=== PATIENT | female | born 1995 | race Hispanic/Latino ===

== ENCOUNTER 2022-06-07 15:33 | Inpatient (IN) | payer OTHER, SELFPAY ==
[~2022-06-07] VITALS: Ht 165.1 cm; Wt 100.9 kg
[2022-06-07 17:51] LABS: BASOPHILS % (AUTO) 1.2 % (0.0-5.0); EOSINOPHILS % (AUTO) 11.7 % (0.0-8.0); HEMATOCRIT 36.7 % (36-48); LYMPHOCYTES % (AUTO) 29.7 % (21.0-51.0); MEAN CORPUSCULAR HGB CONC 36.8 g/dL (32.0-36.0); MEAN CORPUSCULAR VOLUME 81.6 fL (79-99); MONOCYTES % (AUTO) 12.5 % (3.0-13.0); NEUTROPHILS % (AUTO) 44.7 % (40.0-77.0); PLATELET COUNT (AUTO) 256 K/uL (130-400); RED CELL DISTRIBUTION WIDTH 11.8 % (11.0-15.5); WHITE BLOOD COUNT (AUTO) 5.9 K/uL (4.8-10.8)
[2022-06-07 18:14] LABS: CREATININE 0.6 mg/dL (0.5-1.5); POTASSIUM 3.5 mmol/L (3.5-5.1); TOTAL PROTEIN, SERUM 7.8 g/dL (6.0-8.3)
[2022-06-07 18:29] LABS: APPEARANCE,URINE CLEAR (CLEAR); BILIRUBIN,URINE NEGATIVE (NEGATIVE); COLOR,URINE YELLOW (YELLOW); GLUCOSE, URINE (UA) NEGATIVE (NEGATIVE); KETONES,URINE 100 mg/dL (NEGATIVE); LEUKOCYTE ESTERASE ,URINE NEGATIVE Leu/uL (NEGATIVE); NITRATE,URINE NEGATIVE (NEGATIVE); PROTEIN,URINE 10 mg/dL (NEGATIVE); UROBILINOGEN,URINE 0.2 mg/dL (0.2-1.0)
[2022-06-07] MEDS ORDERED: 0.9%NACL 1000ML 1,000 ML IV ONE (18:30)
[2022-06-07 18:33] LABS: MUCUS,URINE FEW LPF (None Seen); SQUAMOUS EPITHELIAL CELL,UR RARE /HPF (0-2)
[2022-06-07 18:38] LABS: HCG,QUALITATIVE URINE NEGATIVE (NEGATIVE)
[2022-06-07] MEDS ORDERED: LACTULOSE 20 GM/30 ML UDCUP PO PRN (19:30)
[2022-06-07] MEDS ORDERED: 0.9%NACL 1000ML 1,000 ML IV SCH (19:30)
[2022-06-07] MEDS ORDERED: ONDANSETRON 4MG INJ IV PRN (19:30)
[2022-06-07] MEDS: CEFTRIAXONE 1G VIAL IVP SCH (20:10)
[2022-06-07] MEDS: FAMOTIDINE 20MG TAB PO SCH (20:10)
[2022-06-07 20:23] LABS: THYROID STIMULATING HORMONE 0.92 uIU/mL (0.36-3.74); URIC ACID 3.9 mg/dL (2.6-7.2)
[2022-06-07 22:41] LABS: CREATININE 0.5 mg/dL (0.5-1.5); POTASSIUM 3.6 mmol/L (3.5-5.1)
[2022-06-08] VITALS (8 sets, daily range): BP systolic 106–138; BP diastolic 64–81
[2022-06-08 02:09] LABS: CREATININE 0.6 mg/dL (0.5-1.5); POTASSIUM 3.5 mmol/L (3.5-5.1)
[2022-06-08 06:49] LABS: CREATININE 0.6 mg/dL (0.5-1.5); POTASSIUM 4.1 mmol/L (3.5-5.1)
[2022-06-08] MEDS ORDERED: GADOTERATE MEGLUMINE 10 MMOL/20 ML VIAL IV ONE (08:00)
[2022-06-08] MEDS: FAMOTIDINE 20MG TAB PO SCH ×2 (09:09→21:10)
[2022-06-08 10:20] LABS: CREATININE 0.7 mg/dL (0.5-1.5); POTASSIUM 3.5 mmol/L (3.5-5.1)
[2022-06-08 14:13] LABS: CREATININE 0.7 mg/dL (0.5-1.5); POTASSIUM 3.6 mmol/L (3.5-5.1)
[2022-06-08 18:16] LABS: CREATININE 0.7 mg/dL (0.5-1.5); POTASSIUM 3.7 mmol/L (3.5-5.1)
[2022-06-08] MEDS: CEFTRIAXONE 1G VIAL IVP SCH (21:10)
[2022-06-09 03:15] VITALS: BP 120/66
[2022-06-09] MEDS: FAMOTIDINE 20MG TAB PO SCH ×2 (07:52→20:52)
[2022-06-09 08:00] VITALS: BP 111/74
[2022-06-09 12:00] VITALS: BP 125/70
[2022-06-09] MEDS ORDERED: PHARMACY COMMUNICATION MISC SCH (15:30)
[2022-06-09] MEDS ORDERED: HYDROCORTISONE 20 MG TABLET PO SCH (15:30)
[2022-06-09 16:00] VITALS: BP 122/73
[2022-06-09] MEDS ORDERED: COSYNTROPIN 0.25 MG VIAL IVP SCH (17:00)
[2022-06-09] MEDS: BROMOCRIPTINE MESYLATE 2.5 MG TABLET PO SCH (18:38)
[2022-06-09 20:02] VITALS: BP 116/78
[2022-06-09] MEDS: HYDROCORTISONE 20 MG TABLET PO SCH (20:52)
[2022-06-09] MEDS: CEFTRIAXONE 1G VIAL IVP SCH (20:52)
[2022-06-09 23:14] VITALS: BP 100/57
[2022-06-10 03:28] VITALS: BP 103/53
[2022-06-10 07:10] VITALS: BP 93/54
[2022-06-10 07:52] LABS: MEAN CORPUSCULAR HGB CONC 35.9 g/dL (32.0-36.0); MEAN CORPUSCULAR VOLUME 83.5 fL (79-99); RED BLOOD CELL COUNT(AUTO) 4.67 MIL/uL (4.00-5.50); RED CELL DISTRIBUTION WIDTH 12.2 % (11.0-15.5); WHITE BLOOD COUNT (AUTO) 5.6 K/uL (4.8-10.8)
[2022-06-10 08:00] LABS: CREATININE 0.6 mg/dL (0.5-1.5); POTASSIUM 4.2 mmol/L (3.5-5.1)
[2022-06-10 08:04] LABS: ALBUMIN 3.9 g/dL (3.5-5.0); TOTAL PROTEIN, SERUM 7.7 g/dL (6.0-8.3)
[2022-06-10] MEDS: HYDROCORTISONE 20 MG TABLET PO SCH ×2 (08:32→22:03)
[2022-06-10] MEDS: FAMOTIDINE 20MG TAB PO SCH ×2 (08:32→22:03)
[2022-06-10] MEDS: BROMOCRIPTINE MESYLATE 2.5 MG TABLET PO SCH (10:07)
[2022-06-10 12:18] VITALS: BP 105/65
[2022-06-10 15:31] VITALS: BP 103/64
[2022-06-10 20:21] VITALS: BP 105/67
[2022-06-10] MEDS: CEFTRIAXONE 1G VIAL IVP SCH (22:03)
[2022-06-10 22:50] VITALS: BP_SYST 104; BP_SYST 92; BP_DIAS 64; BP_DIAS 72
[2022-06-11 03:10] VITALS: BP 92/64
[2022-06-11] MEDS ORDERED: LEVOTHYROXINE 50 MCG TABLET PO SCH (06:30)
[2022-06-11 07:00] VITALS: BP 122/67
[2022-06-11 09:02] LABS: MEAN CORPUSCULAR HEMOGLOBIN 29.9 pg (27.0-33.0); MEAN CORPUSCULAR HGB CONC 34.9 g/dL (32.0-36.0); MEAN CORPUSCULAR VOLUME 85.7 fL (79-99); RED BLOOD CELL COUNT(AUTO) 4.55 MIL/uL (4.00-5.50); RED CELL DISTRIBUTION WIDTH 12.5 % (11.0-15.5)
[2022-06-11 09:07] LABS: CREATININE 0.7 mg/dL (0.5-1.5); POTASSIUM 4.2 mmol/L (3.5-5.1)
[2022-06-11] MEDS: ACETAMINOPHEN 325 MG TAB PO PRN (09:30)
[2022-06-11] MEDS: FAMOTIDINE 20MG TAB PO SCH ×2 (09:30→19:57)
[2022-06-11] MEDS: HYDROCORTISONE 20 MG TABLET PO SCH ×2 (09:30→19:58)
[2022-06-11] MEDS: BROMOCRIPTINE MESYLATE 2.5 MG TABLET PO SCH (09:31)
[2022-06-11 11:05] VITALS: BP 120/75
[2022-06-11 15:02] VITALS: BP 105/70
[2022-06-11] MEDS: CEFTRIAXONE 1G VIAL IVP SCH (19:57)
[2022-06-11 20:50] VITALS: BP 111/78
[2022-06-12 00:20] VITALS: BP 109/58
[2022-06-12 04:09] LABS: BASOPHILS % (AUTO) 0.6 % (0.0-5.0); EOSINOPHILS % (AUTO) 7.4 % (0.0-8.0); LYMPHOCYTES % (AUTO) 43.3 % (21.0-51.0); MEAN CORPUSCULAR HEMOGLOBIN 30.1 pg (27.0-33.0); MONOCYTES % (AUTO) 8.4 % (3.0-13.0); PLATELET COUNT (AUTO) 311 K/uL (130-400); RED BLOOD CELL COUNT(AUTO) 4.42 MIL/uL (4.00-5.50); RED CELL DISTRIBUTION WIDTH 12.4 % (11.0-15.5); WHITE BLOOD COUNT (AUTO) 7.9 K/uL (4.8-10.8)
[2022-06-12 04:15] VITALS: BP 99/55
[2022-06-12 04:30] LABS: CREATININE 0.7 mg/dL (0.5-1.5); MAGNESIUM 2.4 mg/dL (1.80-2.40); PHOSPHORUS 5.7 mg/dL (2.5-4.9); POTASSIUM 4.3 mmol/L (3.5-5.1)
[2022-06-12] MEDS ORDERED: LEVOTHYROXINE 50 MCG TABLET ONE (04:57)
[2022-06-12] MEDS: LEVOTHYROXINE 50 MCG TABLET PO SCH (04:58)
[2022-06-12 07:43] VITALS: BP 109/67
[2022-06-12] MEDS: FAMOTIDINE 20MG TAB PO SCH ×2 (08:21→19:29)
[2022-06-12] MEDS: HYDROCORTISONE 20 MG TABLET PO SCH ×2 (08:21→19:29)
[2022-06-12] MEDS: BROMOCRIPTINE MESYLATE 2.5 MG TABLET PO SCH (08:21)
[2022-06-12 11:19] VITALS: BP 103/72
[2022-06-12] MEDS: ACETAMINOPHEN 325 MG TAB PO PRN (12:35)
[2022-06-12 15:44] VITALS: BP 114/71
[2022-06-12] MEDS: CEFTRIAXONE 1G VIAL IVP SCH (19:29)
[2022-06-12 20:51] VITALS: BP 125/86
[2022-06-13] VITALS (7 sets, daily range): BP systolic 98–115; BP diastolic 60–77
[2022-06-13 05:53] LABS: BASOPHILS % (AUTO) 0.7 % (0.0-5.0); EOSINOPHILS % (AUTO) 6.9 % (0.0-8.0); HEMATOCRIT 39.1 % (36-48); LYMPHOCYTES % (AUTO) 45.3 % (21.0-51.0); MEAN CORPUSCULAR HGB CONC 34.8 g/dL (32.0-36.0); MEAN CORPUSCULAR VOLUME 86.3 fL (79-99); MONOCYTES % (AUTO) 7.7 % (3.0-13.0); NEUTROPHILS % (AUTO) 39.3 % (40.0-77.0); PLATELET COUNT (AUTO) 318 K/uL (130-400); RED BLOOD CELL COUNT(AUTO) 4.53 MIL/uL (4.00-5.50); RED CELL DISTRIBUTION WIDTH 12.4 % (11.0-15.5); WHITE BLOOD COUNT (AUTO) 7.7 K/uL (4.8-10.8)
[2022-06-13 06:02] LABS: CREATININE 0.8 mg/dL (0.5-1.5); POTASSIUM 4.2 mmol/L (3.5-5.1)
[2022-06-13] MEDS: LEVOTHYROXINE 50 MCG TABLET PO SCH (06:07)
[2022-06-13] MEDS: HYDROCORTISONE 20 MG TABLET PO SCH ×2 (09:18→20:27)
[2022-06-13] MEDS: FAMOTIDINE 20MG TAB PO SCH ×2 (09:18→20:27)
[2022-06-13] MEDS: ACETAMINOPHEN 325 MG TAB PO PRN (09:18)
[2022-06-13] MEDS: BROMOCRIPTINE MESYLATE 2.5 MG TABLET PO SCH (09:18)
[2022-06-13 09:33] LABS: INR 1.01 (0.85-1.15)
[2022-06-13] MEDS: CEFTRIAXONE 1G VIAL IVP SCH (20:27)
[2022-06-14 03:36] VITALS: BP 102/60
[2022-06-14 04:39] LABS: BASOPHILS % (AUTO) 0.6 % (0.0-5.0); EOSINOPHILS % (AUTO) 4.9 % (0.0-8.0); HEMATOCRIT 37.4 % (36-48); LYMPHOCYTES % (AUTO) 38.5 % (21.0-51.0); MEAN CORPUSCULAR HEMOGLOBIN 29.9 pg (27.0-33.0); MEAN CORPUSCULAR HGB CONC 34.8 g/dL (32.0-36.0); MONOCYTES % (AUTO) 6.2 % (3.0-13.0); NEUTROPHILS % (AUTO) 49.4 % (40.0-77.0); PLATELET COUNT (AUTO) 319 K/uL (130-400); RED BLOOD CELL COUNT(AUTO) 4.35 MIL/uL (4.00-5.50); RED CELL DISTRIBUTION WIDTH 12.2 % (11.0-15.5); WHITE BLOOD COUNT (AUTO) 8.1 K/uL (4.8-10.8)
[2022-06-14 05:17] LABS: CREATININE 0.8 mg/dL (0.5-1.5); POTASSIUM 3.9 mmol/L (3.5-5.1)
[2022-06-14] MEDS: LEVOTHYROXINE 50 MCG TABLET PO SCH (06:33)
[2022-06-14 08:00] VITALS: BP 105/70
[2022-06-14] MEDS: BROMOCRIPTINE MESYLATE 2.5 MG TABLET PO SCH (09:19)
[2022-06-14] MEDS: FAMOTIDINE 20MG TAB PO SCH ×2 (09:20→20:08)
[2022-06-14] MEDS: HYDROCORTISONE 20 MG TABLET PO SCH ×2 (09:20→20:09)
[2022-06-14] MEDS: ACETAMINOPHEN 325 MG TAB PO PRN (09:36)
[2022-06-14 11:00] VITALS: BP 99/62
[2022-06-14 16:00] VITALS: BP 112/76
[2022-06-14 20:00] VITALS: BP 111/72
[2022-06-15] VITALS (12 sets, daily range): BP systolic 92–143; BP diastolic 54–83
[2022-06-15 05:01] LABS: BASOPHILS % (AUTO) 0.9 % (0.0-5.0); EOSINOPHILS % (AUTO) 4.8 % (0.0-8.0); HEMATOCRIT 37.7 % (36-48); MEAN CORPUSCULAR HEMOGLOBIN 29.8 pg (27.0-33.0); MEAN CORPUSCULAR HGB CONC 34.2 g/dL (32.0-36.0); MEAN CORPUSCULAR VOLUME 87.1 fL (79-99); MONOCYTES % (AUTO) 5.5 % (3.0-13.0); NEUTROPHILS % (AUTO) 52.7 % (40.0-77.0); PLATELET COUNT (AUTO) 314 K/uL (130-400); RED BLOOD CELL COUNT(AUTO) 4.33 MIL/uL (4.00-5.50); RED CELL DISTRIBUTION WIDTH 12.3 % (11.0-15.5); WHITE BLOOD COUNT (AUTO) 8.5 K/uL (4.8-10.8)
[2022-06-15 05:30] LABS: CREATININE 0.7 mg/dL (0.5-1.5); POTASSIUM 4.3 mmol/L (3.5-5.1)
[2022-06-15] MEDS: LEVOTHYROXINE 50 MCG TABLET PO SCH (06:30)
[2022-06-15] MEDS ORDERED: OXYMETAZOLINE HCL SPRAY 15 ML BOTTLE ONE ×2 (06:46→08:31)
[2022-06-15] MEDS ORDERED: EPINEPHRINE 1 MG/ML 30ML VIAL IJ ONE (06:47)
[2022-06-15] MEDS: HYDROCORTISONE SOD SUCCINATE 100 MG/2 ML VIAL IV SCH ×2 (08:30→15:12)
[2022-06-15] MEDS ORDERED: SUCCINYLCHOLINE CHLORIDE 20 MG/ML 10 ML VIAL ONE (08:39)
[2022-06-15] MEDS ORDERED: LIDOCAINE PF 100MG/5ML (2%) SYRINGE 5ML ONE (08:39)
[2022-06-15] MEDS ORDERED: PROPOFOL 10 MG/ML 20ML VIAL IV ONE ×2 (08:39→11:33)
[2022-06-15] MEDS ORDERED: MIDAZOLAM HCL 1 MG/ML 2ML VIAL ONE ×2 (08:40→10:07)
[2022-06-15] MEDS ORDERED: NEOSTIGMINE 5MG/5ML SYR IV ONE (08:40)
[2022-06-15] MEDS ORDERED: ONDANSETRON 4MG INJ ONE ×2 (08:40→11:31)
[2022-06-15] MEDS ORDERED: GLYCOPYRROLATE 1 MG/5 ML SYRINGE ONE (08:40)
[2022-06-15] MEDS ORDERED: DEXAMETHASONE SOD PHOSPHATE 10MG/ML 1ML VIAL ONE ×2 (08:40→11:21)
[2022-06-15] MEDS ORDERED: ROCURONIUM 10MG/1ML SYR 10 MG/ML ML ONE ×2 (08:41→11:18)
[2022-06-15] MEDS ORDERED: FENTANYL CITRATE PF 50 MCG/1 ML 2ML VIAL ONE ×3 (08:41→13:44)
[2022-06-15] MEDS: BROMOCRIPTINE MESYLATE 2.5 MG TABLET PO SCH (08:41)
[2022-06-15] MEDS: FAMOTIDINE 20MG TAB PO SCH ×2 (08:41→20:02)
[2022-06-15] MEDS ORDERED: THROMBIN-JMI 5000 UNIT/VIAL TP ONE (09:38)
[2022-06-15] MEDS ORDERED: LACTATED RINGERS 1000ML 1,000 ML IV ONE (09:39)
[2022-06-15] MEDS ORDERED: CEFAZOLIN SODIUM 1 GM VIAL ONE (09:39)
[2022-06-15] MEDS: CEFAZOLIN SODIUM 2 GM VIAL IVP PRN ×2 (09:43→11:00)
[2022-06-15] MEDS ORDERED: LIDOCAINE 1%-EPI 1:100,000 20 ML VIAL IJ SCH (10:00)
[2022-06-15] MEDS ORDERED: FENTANYL CITRATE PF 50 MCG/1 ML 5ML AMP IV ONE (11:24)
[2022-06-15] MEDS ORDERED: NEOMY SULF/BACITRAC ZN/POLY OINT 30GM TUBE TP ONE (11:25)
[2022-06-15] MEDS ORDERED: PHENYLEPHRINE HCL 10 MG/ML 1ML VIAL IV ONE (11:31)
[2022-06-15 12:50] LABS: ABG BASE EXCESS 0.3 mmol/L (-2.0-3.0); ABG OXYGEN SATURATION 99.4 % (95.0-99.0); ABG PCO2 36 mmHg (32-45)
[2022-06-15] MEDS ORDERED: MORPHINE 2 MG SYG IVP PRN (16:00)
[2022-06-15] MEDS: 0.9%NACL 1000ML 1,000 ML IV SCH (16:46)
[2022-06-15] MEDS: DEXAMETHASONE SOD PHOSPHATE 4 MG/ML 1ML VIAL IV SCH (18:02)
[2022-06-15] MEDS: CEFAZOLIN SODIUM 2 GM VIAL IVP SCH (19:44)
[2022-06-16] VITALS (24 sets, daily range): BP systolic 98–144; BP diastolic 61–93
[2022-06-16] MEDS: DEXAMETHASONE SOD PHOSPHATE 4 MG/ML 1ML VIAL IV SCH ×2 (00:01→05:25)
[2022-06-16] MEDS: HYDROCORTISONE SOD SUCCINATE 100 MG/2 ML VIAL IV SCH (00:01)
[2022-06-16] MEDS: CEFAZOLIN SODIUM 2 GM VIAL IVP SCH ×3 (02:34→18:34)
[2022-06-16 04:27] LABS: BASOPHILS % (AUTO) 0.2 % (0.0-5.0); HEMATOCRIT 37.2 % (36-48); MEAN CORPUSCULAR HEMOGLOBIN 29.6 pg (27.0-33.0); MEAN CORPUSCULAR HGB CONC 34.4 g/dL (32.0-36.0); MEAN CORPUSCULAR VOLUME 85.9 fL (79-99); MONOCYTES % (AUTO) 1.3 % (3.0-13.0); NEUTROPHILS % (AUTO) 89.2 % (40.0-77.0); PLATELET COUNT (AUTO) 339 K/uL (130-400); RED BLOOD CELL COUNT(AUTO) 4.33 MIL/uL (4.00-5.50); RED CELL DISTRIBUTION WIDTH 12.1 % (11.0-15.5); WHITE BLOOD COUNT (AUTO) 12.2 K/uL (4.8-10.8)
[2022-06-16 04:56] LABS: ALBUMIN 3.6 g/dL (3.5-5.0); CREATININE 0.7 mg/dL (0.5-1.5); MAGNESIUM 1.9 mg/dL (1.80-2.40); PHOSPHORUS 5.3 mg/dL (2.5-4.9); POTASSIUM 3.8 mmol/L (3.5-5.1); TOTAL PROTEIN, SERUM 7.5 g/dL (6.0-8.3)
[2022-06-16] MEDS: 0.9%NACL 1000ML 1,000 ML IV SCH ×2 (05:31→18:35)
[2022-06-16] MEDS ORDERED: IOHEXOL 350 MG/ML 100ML INFUS..BTL IV ONE (05:47)
[2022-06-16] MEDS: LEVOTHYROXINE 50 MCG TABLET PO SCH (06:48)
[2022-06-16] MEDS: FAMOTIDINE 20MG TAB PO SCH ×2 (09:17→20:25)
[2022-06-16] MEDS ORDERED: NACL NASAL SPRAY 120 SPRAY/BOTTLE NS PRN (09:30)
[2022-06-16] MEDS: DEXAMETHASONE 4 MG TAB PO SCH ×3 (12:35→23:35)
[2022-06-17] VITALS (14 sets, daily range): BP systolic 104–123; BP diastolic 55–82
[2022-06-17] MEDS: CEFAZOLIN SODIUM 2 GM VIAL IVP SCH ×3 (03:28→19:39)
[2022-06-17 03:51] LABS: BASOPHILS % (AUTO) 0.1 % (0.0-5.0); HEMATOCRIT 35.5 % (36-48); LYMPHOCYTES % (AUTO) 13.3 % (21.0-51.0); MEAN CORPUSCULAR HEMOGLOBIN 29.6 pg (27.0-33.0); MEAN CORPUSCULAR HGB CONC 34.1 g/dL (32.0-36.0); MEAN CORPUSCULAR VOLUME 86.8 fL (79-99); MONOCYTES % (AUTO) 4.3 % (3.0-13.0); PLATELET COUNT (AUTO) 316 K/uL (130-400); RED BLOOD CELL COUNT(AUTO) 4.09 MIL/uL (4.00-5.50); RED CELL DISTRIBUTION WIDTH 12.3 % (11.0-15.5); WHITE BLOOD COUNT (AUTO) 10.8 K/uL (4.8-10.8)
[2022-06-17 04:07] LABS: ALBUMIN 3.4 g/dL (3.5-5.0); CREATININE 0.7 mg/dL (0.5-1.5); POTASSIUM 4.2 mmol/L (3.5-5.1); TOTAL PROTEIN, SERUM 7.1 g/dL (6.0-8.3)
[2022-06-17] MEDS: LEVOTHYROXINE 50 MCG TABLET PO SCH (05:20)
[2022-06-17] MEDS: DEXAMETHASONE 4 MG TAB PO SCH ×4 (05:20→23:48)
[2022-06-17] MEDS: FAMOTIDINE 20MG TAB PO SCH ×2 (09:32→19:39)
[2022-06-17] MEDS: ACETAMINOPHEN 325 MG TAB PO PRN (20:02)
[2022-06-18] VITALS: BP 114/85
[2022-06-18] MEDS: CEFAZOLIN SODIUM 2 GM VIAL IVP SCH (03:03)
[2022-06-18 04:00] VITALS: BP 119/79
[2022-06-18 04:48] LABS: BASOPHILS % (AUTO) 0.1 % (0.0-5.0); HEMATOCRIT 35.8 % (36-48); LYMPHOCYTES % (AUTO) 15.1 % (21.0-51.0); MEAN CORPUSCULAR HEMOGLOBIN 30.2 pg (27.0-33.0); MEAN CORPUSCULAR HGB CONC 34.9 g/dL (32.0-36.0); MEAN CORPUSCULAR VOLUME 86.5 fL (79-99); MONOCYTES % (AUTO) 3.8 % (3.0-13.0); NEUTROPHILS % (AUTO) 80.5 % (40.0-77.0); PLATELET COUNT (AUTO) 314 K/uL (130-400); RED BLOOD CELL COUNT(AUTO) 4.14 MIL/uL (4.00-5.50); RED CELL DISTRIBUTION WIDTH 12.2 % (11.0-15.5)
[2022-06-18 05:07] LABS: ALBUMIN 3.6 g/dL (3.5-5.0); CREATININE 0.7 mg/dL (0.5-1.5); POTASSIUM 3.9 mmol/L (3.5-5.1); TOTAL PROTEIN, SERUM 7.5 g/dL (6.0-8.3)
[2022-06-18] MEDS: DEXAMETHASONE 4 MG TAB PO SCH (06:23)
[2022-06-18] MEDS: LEVOTHYROXINE 50 MCG TABLET PO SCH (06:23)
[2022-06-18 08:00] VITALS: BP 104/74
[2022-06-18] MEDS: FAMOTIDINE 20MG TAB PO SCH (08:32)
== END 2022-06-18 11:25 | disposition home or self-care (01) | DRG 614 ==
LOC: EDH 15:33 → EDHIP 15:34 → 4AH 23:38 → 2BH 06-15 14:04 → 4BH 06-17 17:00
PROVIDERS: ADMIT Hospitalist; ATTEND Hospitalist
PROC: 0GT Endocrine System, Resection (ICD-10-PCS; principal; 2022-06-15)
PROC: 0NB Head and Facial Bones, Excision (ICD-10-PCS; 2022-06-15)
DX: D35.2 Benign neoplasm of pituitary gland (principal); E87.1 Hypo-osmolality and hyponatremia; N39.0 Urinary tract infection, site not specified; Z20.822 Contact with and (suspected) exposure to COVID-19; E87.8 Other disorders of electrolyte and fluid balance, not elsewhere classified; E03.9 Hypothyroidism, unspecified
CPT/HCPCS: 36415; 70250; 70450; 70470; 70553; 71045; 80048; 80053; 81001; 81025; 82435; 82533; 82627; 82670; 82803; 82947; 82948; 83001; 83002; 83605; 83735; 83935; 83970; 84100; 84132; 84146; 84295; 84436; 84439; 84443; 84479; 84480; 84481; 84484; 84550; 84703; 85018; 85025; 85027; 85610; 86277; 87088; 87635; 93005; A4344; C1713; G0378; J0171; J0330; J0690; J0696; J0834; J1100; J1720; J2001; J2250; J2370; J2405; J2704; J2710; J3010; J3490; J7030; J7040; J7120; J8540; Q9967

== ENCOUNTER → 2023-05-27 | Outpatient (CLI) | payer BC ==
[~2023-05-27] MED LIST: GADOTERATE MEGLUMINE 10 MMOL/20 ML VIAL IV ONE
== END | disposition home or self-care (01) ==
LOC: RAH 14:06
PROVIDERS: ATTEND Neurological Surgery
DX: D35.2 Benign neoplasm of pituitary gland (principal)
CPT/HCPCS: 70553; A9575